=== PATIENT | male | born 1960 | race Caucasian/White ===

== ENCOUNTER → 2017-01-09 | Day surgery (SDC) | payer OTHER ==
[~2017-01-09] MED LIST: AMLODIPINE BESYL5 MG PO; ATORVASTATIN CA10 MG PO; CLOMIPRAMINE HC75 MG PO; FENOFIBRATE145 M1 PO; FLOMAX0.4 M1 PO; LISINOPRIL10 MG PO
--- NOTE | ~2017-01-09 | OR ---
Unit #: [id number] #: [id number] Patient: NEPTALI BENNETT [id number] [address] [address] [id number] O MR#: [id number] NAME: NEPTALI BENNETT ROOM: Date of Procedure: 01/09/2017 Admission Date: 01/09/2017 Surgeon: Jason Orozco M.D. : 1960 Attending Physician: Jason Orozco M.D. Primary Care Physician: Maru Kasper M.D. OPERATIVE REPORT PREOPERATIVE DIAGNOSIS Screening colonoscopy. POSTOPERATIVE DIAGNOSIS 0.2 cm rectal polyp. PROCEDURE PERFORMED 1. Colonoscopy to cecum. 2. Cold biopsy excision of rectal polyp. ANESTHESIA IV sedation. COMPLICATIONS None. INDICATIONS FOR PROCEDURE The patient is a 56-year-old, who presents for screening colonoscopy. DESCRIPTION OF PROCEDURE The patient was taken to the operating theater and placed in left lateral decubitus position. IV sedation was initiated. Digital rectal exam was normal. Colonoscope was then passed under vision and navigated to the cecum. The patient had a relatively poor prep and I was able to exclude any obvious neoplastic lesions. There was a 0.2 cm polyp at the second valve of the rectum. This was removed in its entirety with cold biopsy. Hemostasis was adequate. I saw no other diagnosis. He tolerated the procedure well and sent to the recovery room in good condition. Dictated by... Jason Orozco M.D. JNO/modl TD: 01/10/2017 04:44 JOB #: [id number] Unit #: [id number] #: [id number] Patient: NEPTALI BENNETT OPERATIVE REPORT Page 1 of 1 X Jason Orozco MD PROCEDURE OPERATIVE NOTE
== END | disposition home or self-care (01) ==
LOC: COPS 11:11
DX: Z12.11 Encounter for screening for malignant neoplasm of colon (principal); D12.8 Benign neoplasm of rectum; I10 Essential (primary) hypertension; Z79.899 Other long term (current) drug therapy
CPT/HCPCS: 88305; J2250